=== PATIENT | male | born 1940 | race Hispanic/Latino ===

== ENCOUNTER → 2018-10-13 | Outpatient (CLI) | payer OTHER, MEDICARE | END | disposition home or self-care (01) | LOC: OIH 09:27 | PROVIDERS: ATTEND Family Medicine | DX: M19.071 Primary osteoarthritis, right ankle and foot (principal); M77.31 Calcaneal spur, right foot | CPT/HCPCS: 73610 ==

== ENCOUNTER → 2019-03-08 | Outpatient (CLI) | payer MEDICARE | END | disposition home or self-care (01) | LOC: RAH 08:20 | PROVIDERS: ATTEND Family Medicine | DX: I65.22 Occlusion and stenosis of left carotid artery (principal) | CPT/HCPCS: 93880 ==

== ENCOUNTER 2019-04-23 06:36 | Day surgery (SDC) | payer MEDICARE ==
[2019-04-23 06:30] VITALS: BP 144/90
[2019-04-23] MEDS ORDERED: SODIUM CHLORIDE 0.9% 1000ML 1,000 ML IV ONE (07:08)
[2019-04-23 09:50] VITALS: BP 127/87
[2019-04-23] MEDS ORDERED: IOHEXOL-350 75 ML VIAL IV ONE (10:25)
--- NOTE | 2019-04-23 10:50 | NUR ---
NOTE HYDRATION OF NS AT 150 ML/HR X 4 HOURS COMPLETED AT THIS TIME. IV STOPPED.
--- NOTE | 2019-04-23 11:25 | NUR ---
DISCHARGE PT DISCHARGED VIA WHEELCHAIR WITH DAUGHTER. PT STABLE. NO SIGNS/SYMPTOMS OF ALLERGIC REACTIONS SUCH FEVERS, CHILLS, ITCHING, RASHES, HIVES, SHORTNESS OF BREATH ,WHEEZING, CHEST PAIN, IV SITE NO SWELLING, NO REDNESS NO BLEEDING. PT TOLERATED ORAL FLUIDS WELL. DISCHARGE INSTRUCTIONS GIVEN TO PT AND DAUGHTER, BOTH VERBALIZED UNDERSTANDING. Addendum: 04/23/19 at 1304 by HUNG FONTAINE RN RN ERROR IN TIME: DISCHARGE NOTE TIME IS 1225.
[2019-04-23 11:50] VITALS: BP 138/94
[2019-04-23 12:15] VITALS: BP 147/90
== END 2019-04-23 12:25 | disposition home or self-care (01) ==
LOC: RAH 06:36 → DAH 06:36
PROVIDERS: ATTEND Internal Medicine Cardiovascular Disease
DX: I65.22 Occlusion and stenosis of left carotid artery (principal); I10 Essential (primary) hypertension; E78.00 Pure hypercholesterolemia, unspecified
CPT/HCPCS: 70498; A4606; J7030; Q9967; 96360; 96361

== ENCOUNTER → 2019-04-30 | Outpatient (CLI) | payer MEDICARE ==
[~2019-04-30] VITALS: Ht 167.6 cm; Wt 84.8 kg
[~2019-04-30] MED LIST: REGADENOSON 0.4 MG/5 ML PF SYG IVP SCH
== END | disposition home or self-care (01) ==
LOC: SHCH 08:21
PROVIDERS: ATTEND Internal Medicine Cardiovascular Disease
DX: R53.83 Other fatigue (principal); I11.9 Hypertensive heart disease without heart failure; I65.29 Occlusion and stenosis of unspecified carotid artery
CPT/HCPCS: 78452; 93017; 96374; A9500 ×2; J2785

== ENCOUNTER → 2019-05-03 | Outpatient (CLI) | payer MEDICARE | END | disposition home or self-care (01) | LOC: SHCH 08:14 | PROVIDERS: ATTEND Internal Medicine Cardiovascular Disease | DX: I11.9 Hypertensive heart disease without heart failure (principal); I35.1 Nonrheumatic aortic (valve) insufficiency | CPT/HCPCS: 93306 ==

== ENCOUNTER → 2019-06-08 | Outpatient (CLI) | payer MEDICARE | END | disposition home or self-care (01) | LOC: RAH 14:09 | PROVIDERS: ATTEND Family Medicine | DX: R60.0 Localized edema (principal) | CPT/HCPCS: 93931; 93971 ==

== ENCOUNTER → 2019-08-06 | Outpatient (CLI) | payer MEDICARE | END | disposition home or self-care (01) | LOC: OIH 09:52 | PROVIDERS: ATTEND Internal Medicine | DX: M06.4 Inflammatory polyarthropathy (principal); M19.042 Primary osteoarthritis, left hand; M19.041 Primary osteoarthritis, right hand; I70.203 Unspecified atherosclerosis of native arteries of extremities, bilateral legs; M19.072 Primary osteoarthritis, left ankle and foot; M77.32 Calcaneal spur, left foot; M77.31 Calcaneal spur, right foot; M19.071 Primary osteoarthritis, right ankle and foot | CPT/HCPCS: 73120; 73620 ==

== ENCOUNTER → 2020-02-06 | Outpatient (CLI) | payer MEDICARE | END | disposition home or self-care (01) | LOC: SHCH 11:50 | PROVIDERS: ATTEND Internal Medicine Cardiovascular Disease | DX: I65.21 Occlusion and stenosis of right carotid artery (principal) | CPT/HCPCS: 93880 ==

== ENCOUNTER → 2020-07-09 | Outpatient (CLI) | payer MEDICARE | END | disposition home or self-care (01) | LOC: OIH 10:00 | PROVIDERS: ATTEND Family Medicine | DX: Z01.818 Encounter for other preprocedural examination (principal); I13.0 Hypertensive heart and chronic kidney disease with heart failure and stage 1 through stage 4 chronic kidney disease, or unspecified chronic kidney disease | CPT/HCPCS: 71046 ==

== ENCOUNTER → 2020-07-31 | Outpatient (CLI) | payer MEDICARE | END | disposition home or self-care (01) | LOC: RAH 07:41 | PROVIDERS: ATTEND Orthopaedic Surgery | DX: M75.122 Complete rotator cuff tear or rupture of left shoulder, not specified as traumatic (principal) | CPT/HCPCS: 73221 ==

== ENCOUNTER → 2020-12-26 | Outpatient (CLI) | payer OTHER, MEDICARE | END | disposition home or self-care (01) | LOC: RAH 09:01 | PROVIDERS: ATTEND Internal Medicine | DX: M54.5 Low back pain (principal) | CPT/HCPCS: 76770 ==

== ENCOUNTER → 2021-03-11 | Outpatient (CLI) | payer OTHER, MEDICARE | END | disposition home or self-care (01) | LOC: RAH 09:36 | PROVIDERS: ATTEND Internal Medicine | DX: E11.51 Type 2 diabetes mellitus with diabetic peripheral angiopathy without gangrene (principal) | CPT/HCPCS: 93925 ==

== ENCOUNTER → 2021-03-24 | Outpatient (CLI) | payer OTHER, MEDICARE | END | disposition home or self-care (01) | LOC: SHCH 09:44 | PROVIDERS: ATTEND Internal Medicine Cardiovascular Disease | DX: I82.B12 Acute embolism and thrombosis of left subclavian vein (principal); I80.203 Phlebitis and thrombophlebitis of unspecified deep vessels of lower extremities, bilateral; I70.92 Chronic total occlusion of artery of the extremities; M79.632 Pain in left forearm; R42 Dizziness and giddiness | CPT/HCPCS: 93970 ==

== ENCOUNTER → 2021-07-09 | Outpatient (CLI) | payer OTHER, MEDICARE | END | disposition home or self-care (01) | LOC: SHCH 09:09 | PROVIDERS: ATTEND Internal Medicine Cardiovascular Disease | DX: I65.23 Occlusion and stenosis of bilateral carotid arteries (principal); I10 Essential (primary) hypertension; E78.5 Hyperlipidemia, unspecified | CPT/HCPCS: 93880 ==

== ENCOUNTER → 2021-11-30 | Outpatient (CLI) | payer OTHER, MEDICARE | END | disposition home or self-care (01) | LOC: SHCH 10:56 | PROVIDERS: ATTEND Internal Medicine Cardiovascular Disease | DX: R60.9 Edema, unspecified (principal) | CPT/HCPCS: 93971 ==

== ENCOUNTER → 2022-11-29 | Outpatient (CLI) | payer OTHER, MEDICARE | END | disposition home or self-care (01) | LOC: SHCH 10:37 | PROVIDERS: ATTEND Internal Medicine Cardiovascular Disease | DX: I35.0 Nonrheumatic aortic (valve) stenosis (principal); R94.31 Abnormal electrocardiogram [ECG] [EKG] | CPT/HCPCS: 93306 ==

== ENCOUNTER → 2022-12-06 | Outpatient (CLI) | payer OTHER, MEDICARE | END | disposition home or self-care (01) | LOC: SHCH 08:59 | PROVIDERS: ATTEND Internal Medicine Cardiovascular Disease | DX: R94.31 Abnormal electrocardiogram [ECG] [EKG] (principal); R01.1 Cardiac murmur, unspecified | CPT/HCPCS: 78452; 96374; 93017; J2785; A9500 ×2 ==

== ENCOUNTER → 2023-03-16 | Outpatient (CLI) | payer OTHER, MEDICARE | END | disposition home or self-care (01) | LOC: RAH 10:09 | PROVIDERS: ATTEND Internal Medicine | DX: N27.1 Small kidney, bilateral (principal); N18.4 Chronic kidney disease, stage 4 (severe) | CPT/HCPCS: 76770 ==

== ENCOUNTER → 2023-03-30 | Outpatient (CLI) | payer OTHER, MEDICARE | END | disposition home or self-care (01) | LOC: RAH 10:07 | PROVIDERS: ATTEND Internal Medicine Cardiovascular Disease | DX: I12.9 Hypertensive chronic kidney disease with stage 1 through stage 4 chronic kidney disease, or unspecified chronic kidney disease (principal); N18.4 Chronic kidney disease, stage 4 (severe) | CPT/HCPCS: 76770; 93975 ==

== ENCOUNTER 2023-05-18 14:05 | Emergency (ER) | payer OTHER, MEDICARE ==
[~2023-05-18] VITALS: Ht 167.6 cm; Wt 86.2 kg
[2023-05-18 18:16] LABS: BASOPHILS # (AUTO) 0.05 K/uL (0.00-0.20); BASOPHILS % (AUTO) 0.5 % (0.0-5.0); EOSINOPHILS # (AUTO) 0.52 K/uL (0.00-0.70); EOSINOPHILS % (AUTO) 5.1 % (0.0-8.0); HEMATOCRIT 36.6 % (42-54); IMMATURE GRANULOCYTE ABSOLUTE 0.34 K/uL (0-1); LYMPHOCYTES # (AUTO) 1.7 K/uL (1.0-4.8); LYMPHOCYTES % (AUTO) 16.8 % (21.0-51.0); MEAN CORPUSCULAR HEMOGLOBIN 29.7 pg (27.0-33.0); MEAN CORPUSCULAR HGB CONC 33.6 g/dL (32.0-36.0); MEAN CORPUSCULAR VOLUME 88.4 fL (79-99); MONOCYTES # (AUTO) 1.2 K/uL (0.1-1.0); MONOCYTES % (AUTO) 11.9 % (3.0-13.0); NEUTROPHILS # (AUTO) 6.4 K/uL (1.8-7.7); NEUTROPHILS % (AUTO) 62.4 % (40.0-77.0); PLATELET COUNT (AUTO) 290 K/uL (130-400); RED BLOOD CELL COUNT(AUTO) 4.14 MIL/uL (4.50-6.20); RED CELL DISTRIBUTION WIDTH 13.2 % (11.0-15.5); WHITE BLOOD COUNT (AUTO) 10.2 K/uL (4.8-10.8)
[2023-05-18 18:20] LABS: ADD UA MICROSCOPIC YES; APPEARANCE,URINE CLEAR (CLEAR); BILIRUBIN,URINE NEGATIVE (NEGATIVE); COLOR,URINE LIGHT-YELLOW (YELLOW); GLUCOSE, URINE (UA) NEGATIVE (NEGATIVE); KETONES,URINE NEGATIVE (NEGATIVE); LEUKOCYTE ESTERASE ,URINE NEGATIVE Leu/uL (NEGATIVE); NITRATE,URINE NEGATIVE (NEGATIVE); OCCULT BLOOD,URINE NEGATIVE (NEGATIVE); PH,URINE 5.5 (5.0-8.0); PROTEIN,URINE 30 mg/dL (NEGATIVE); UROBILINOGEN,URINE 0.2 mg/dL (0.2-1.0)
[2023-05-18 18:21] LABS: MUCUS,URINE RARE LPF (None Seen); WBC,URINE 0-1 /HPF (0-1)
[2023-05-18 18:25] LABS: CREATININE 1.8 mg/dL (0.5-1.5); POTASSIUM 4.9 mmol/L (3.5-5.1)
[2023-05-18 18:29] LABS: ALBUMIN 3.2 g/dL (3.5-5.0); BILIRUBIN,TOTAL 0.5 mg/dL (0.2-1.0); TOTAL PROTEIN, SERUM 7.5 g/dL (6.0-8.3)
[2023-05-18] MEDS ORDERED: MORPHINE 2 MG SYG IM ONE (20:00)
[2023-05-18] MEDS ORDERED: 0.9%NACL 1000ML 1,000 ML IV ONE (20:00)
[2023-05-18] MEDS ORDERED: DICY20TA2 PO (20:54)
[2023-05-18] MEDS ORDERED: IBUP-1493 PO (20:54)
[2023-05-18 21:09] VITALS: BP 105/74; PULSE 60; RESP 17; O2SAT 98
== END 2023-05-18 21:10 | disposition home or self-care (01) ==
LOC: EDH 14:05
DX: K52.9 Noninfective gastroenteritis and colitis, unspecified (principal); K40.90 Unilateral inguinal hernia, without obstruction or gangrene, not specified as recurrent; M19.90 Unspecified osteoarthritis, unspecified site; E78.00 Pure hypercholesterolemia, unspecified; I10 Essential (primary) hypertension
CPT/HCPCS: 99285; 74176; 96360; 76705; 80053; 83690; 85025; 81001; 36415; 96372; J2270; J7030

== ENCOUNTER → 2023-05-18 | Outpatient (CLI) | payer OTHER, MEDICARE ==
[~2023-05-18] MED LIST changes: +DICY20TA2 PO; +IBUP-1493 PO; -REGADENOSON 0.4 MG/5 ML PF SYG IVP SCH
== END | disposition home or self-care (01) ==
LOC: RAH 13:10
PROVIDERS: ATTEND Internal Medicine
DX: R10.31 Right lower quadrant pain (principal)
CPT/HCPCS: 76705

== ENCOUNTER 2023-07-05 06:10 | Day surgery (SDC) | payer OTHER, MEDICARE ==
[2023-06-30 12:28] LABS: BASOPHILS # (AUTO) 0.03 K/uL (0.00-0.20); BASOPHILS % (AUTO) 0.4 % (0.0-5.0); EOSINOPHILS # (AUTO) 0.54 K/uL (0.00-0.70); EOSINOPHILS % (AUTO) 6.9 % (0.0-8.0); HEMATOCRIT 36.5 % (42-54); IMMATURE GRANULOCYTE ABSOLUTE 0.04 K/uL (0-1); LYMPHOCYTES # (AUTO) 1.4 K/uL (1.0-4.8); LYMPHOCYTES % (AUTO) 17.7 % (21.0-51.0); MEAN CORPUSCULAR HEMOGLOBIN 29.5 pg (27.0-33.0); MEAN CORPUSCULAR HGB CONC 33.2 g/dL (32.0-36.0); MONOCYTES # (AUTO) 0.6 K/uL (0.1-1.0); MONOCYTES % (AUTO) 7.9 % (3.0-13.0); NEUTROPHILS # (AUTO) 5.3 K/uL (1.8-7.7); NEUTROPHILS % (AUTO) 66.6 % (40.0-77.0); PLATELET COUNT (AUTO) 198 K/uL (130-400); RED CELL DISTRIBUTION WIDTH 13.2 % (11.0-15.5); WHITE BLOOD COUNT (AUTO) 7.9 K/uL (4.8-10.8)
[2023-06-30 12:34] VITALS: BP 144/68; PULSE 52; RESP 19
[2023-06-30 12:38] LABS: INR 0.97 (0.85-1.15); PROTHROMBIN TIME 11.3 SEC (9.6-11.6)
[2023-06-30 12:39] LABS: CREATININE 2.2 mg/dL (0.5-1.5); PARTIAL THROMBOPLASTIN TIME 27.6 SEC (26.3-35.5); POTASSIUM 5.1 mmol/L (3.5-5.1)
[~2023-07-05] VITALS: Ht 167.6 cm; Wt 84.9 kg
[2023-07-05] VITALS (16 sets, daily range): BP systolic 100–158; BP diastolic 55–73; PULSE 53–62; RESP 9–23
[~2023-07-05 06:10] MED LIST changes: +ACET-3573 PO; +AEC81 PO; +ATOR40TA71 PO; +BUSP5TAB3 PO; +CHOL100040 PO; +CITA-107 PO; +CLOP75TA32 PO; +CYAN500T9 PO; -DICY20TA2 PO; +DOCU100C33 PO; +FISH1CAP65 PO; +HYDR-4154 PO; -IBUP-1493 PO; +LISI40TA9 PO; +METO-409 PO; +NIFE90TA72 PO
[2023-07-05] MEDS ORDERED: 0.9%NACL 1000ML 1,000 ML IV ONE (06:44)
[2023-07-05] MEDS ORDERED: CEFAZOLIN SODIUM 2 GM VIAL ONE (06:44)
[2023-07-05] MEDS ORDERED: BUPIVACAINE/PF 0.25% 30ML VIAL IJ ONE (07:05)
[2023-07-05] MEDS ORDERED: ROCURONIUM 10MG/1ML SYR 10 MG/ML ML ONE (07:13)
[2023-07-05] MEDS ORDERED: PROPOFOL 10 MG/ML 20ML VIAL IV ONE (07:13)
[2023-07-05] MEDS ORDERED: LIDOCAINE PF 100MG/5ML (2%) SYRINGE 5ML ONE (07:13)
[2023-07-05] MEDS ORDERED: MIDAZOLAM HCL 1 MG/ML 2ML VIAL ONE (07:13)
[2023-07-05] MEDS ORDERED: ONDANSETRON 4MG INJ ONE (07:14)
[2023-07-05] MEDS ORDERED: DEXAMETHASONE SOD PHOSPHATE 4 MG/ML 1ML VIAL ONE (07:14)
[2023-07-05] MEDS ORDERED: FENTANYL CITRATE PF 50 MCG/1 ML 2ML VIAL ONE (07:14)
[2023-07-05] MEDS ORDERED: ROPIVACAINE 0.5% 5MG/ML 30ML IJ ONE (07:21)
[2023-07-05] MEDS ORDERED: GLYCOPYRROLATE 1 MG/5 ML SYRINGE ONE (07:44)
[2023-07-05] MEDS ORDERED: PHENYLEPHRINE HCL 10 MG/ML 1ML VIAL IV ONE (07:44)
[2023-07-05] MEDS ORDERED: NEOSTIGMINE 5MG/5ML SYR IV ONE (07:45)
[2023-07-05] MEDS ORDERED: CEFAZOLIN SODIUM 2 GM VIAL IVPB ONE (07:45)
[2023-07-05] MEDS ORDERED: EPHEDRINE SULFATE 50 MG/ML AMPULE ONE (07:48)
[2023-07-05] MEDS ORDERED: TRAM50TA4 PO (08:32)
[2023-07-05] MEDS ORDERED: GABA-529 PO (08:32)
[2023-07-05] MEDS ORDERED: DOCU-116 PO (08:32)
== END 2023-07-05 10:25 | disposition home or self-care (01) ==
LOC: DAH 06:10
PROVIDERS: ATTEND Surgery
DX: K40.90 Unilateral inguinal hernia, without obstruction or gangrene, not specified as recurrent (principal); N43.2 Other hydrocele; E11.22 Type 2 diabetes mellitus with diabetic chronic kidney disease; I12.9 Hypertensive chronic kidney disease with stage 1 through stage 4 chronic kidney disease, or unspecified chronic kidney disease; N18.4 Chronic kidney disease, stage 4 (severe); E11.42 Type 2 diabetes mellitus with diabetic polyneuropathy; E11.628 Type 2 diabetes mellitus with other skin complications; M15.9 Polyosteoarthritis, unspecified; E78.2 Mixed hyperlipidemia; M10.9 Gout, unspecified; N40.0 Benign prostatic hyperplasia without lower urinary tract symptoms; J44.9 Chronic obstructive pulmonary disease, unspecified; Z85.46 Personal history of malignant neoplasm of prostate; Z86.718 Personal history of other venous thrombosis and embolism; Z79.899 Other long term (current) drug therapy; Z79.01 Long term (current) use of anticoagulants
CPT/HCPCS: 80048; 85025; 85610; 85730; 36415; 49505; 55040; 82948 ×2; 64486; A6260; J1100; A4663; J7030 ×2; A4452; A4344; J3010; J3490 ×3; J2710; J2001; J2250; J2704; J2405; J2795; J2371; J0690 ×2; A4215; A4223; A4222; A4221; A4600

== ENCOUNTER → 2023-07-27 | Outpatient (CLI) | payer OTHER, MEDICARE ==
[~2023-07-27] MED LIST changes: +DOCU-116 PO; +GABA-529 PO; +TRAM50TA4 PO
== END | disposition home or self-care (01) ==
LOC: RAH 09:57
PROVIDERS: ATTEND Internal Medicine
DX: I70.203 Unspecified atherosclerosis of native arteries of extremities, bilateral legs (principal)
CPT/HCPCS: 93925

== ENCOUNTER → 2024-06-29 | Outpatient (CLI) | payer OTHER, MEDICARE ==
[~2024-06-29] MED LIST changes: -HYDR-4154 PO; +HYDR50TA37 PO
[2024-06-29] MEDS: REGADENOSON 0.4 MG/5 ML PF SYG IVP ONE (11:25)
== END | disposition home or self-care (01) ==
LOC: SHCH 08:20
PROVIDERS: ATTEND Internal Medicine Cardiovascular Disease
DX: I25.119 Atherosclerotic heart disease of native coronary artery with unspecified angina pectoris (principal); I10 Essential (primary) hypertension; R06.02 Shortness of breath; R53.83 Other fatigue; R00.1 Bradycardia, unspecified; Z79.899 Other long term (current) drug therapy
CPT/HCPCS: 78452; 93017; J2785; A9500 ×2

== ENCOUNTER → 2025-01-25 | Outpatient (CLI) | payer OTHER, MEDICARE ==
[~2025-01-25] MED LIST changes: +LISI40TA15 PO; -LISI40TA9 PO
--- NOTE | 2025-01-25 11:54 | HMCIMG ---
US VENOUS DOPPLER UNILATERAL HISTORY: Upper extremity swelling COMPARISON: None TECHNIQUE: Left upper extremity venous Doppler ultrasound study was performed. FINDINGS: The left subclavian, axillary, and brachial veins are visualized. Normal flow with augmentation and compressibilities are demonstrated. Left cephalic and basilic veins are patent IMPRESSION: 1. No evidence of deep venous thrombosis is seen.
== END | disposition home or self-care (01) ==
LOC: RAH 10:47
PROVIDERS: ATTEND Internal Medicine
DX: R22.32 Localized swelling, mass and lump, left upper limb (principal); M79.89 Other specified soft tissue disorders
CPT/HCPCS: 93971

== ENCOUNTER → 2025-02-07 | Outpatient (CLI) | payer OTHER, MEDICARE ==
[~2025-02-07] MED LIST changes: -LISI40TA15 PO; +LISI40TA9 PO
--- NOTE | 2025-02-07 20:42 | HMCSR ---
APPROVED REPORT EXAM: Two-dimensional and M-mode echocardiogram with Doppler and color Doppler. INDICATION ICD: R60.0 Localized edema 2D Dimensions RVDd3.8 cmLVEF(%)65.1 (>50%)LVED Vol(simp.)110.0 mL IVSd1.0 (0.7-1.1cm)FS(%)36 %LVES Vol(simp.)43.0 mL LVDd4.9 (3.8-5.6cm)LA (2D)4.9 (1.6-4.0cm)LVEF(%, simp.)61 % PWd1.4 (0.7-1.1cm)Ao Root(2D)3.4 (2.0-3.7cm)LA ESV INDEX (BP)38.59 mL/m2 IVSs1.4 cmLVOT diam2.3 (1.8-2.4cm) LVDs3.1 (2.5-4.0cm)IVC diam1.0 cm PWs1.6 cm M-Mode Dimensions EPSS0.6 cm LA (MM)6.1 (1.6-4.0cm) Ao Root(MM)3.3 (2.0-3.7cm) Aortic Valve AoV Vmax2.6 m/Jonny Peak GR43.2 mmHgLVOT Vmax1.2 m/s AoV VTI0.6 mAo Mean GR20.9 mmHgLVOT VTI0.30 m HILLARY (VMAX)1.50 cm2Al P1/2T611 msAVA (VTI) 2.1 cm2 Mitral Valve MV E Idxh011.4 cm/sDECEL Vlji679 ms MV A Zulo436.5 cm/sP 1/2 T46 ms E/A ratio1.0MVA (PHT)4.8 cm2 TDI E/E' Raskax42.2E/E' Nzwkdma39.0 Medial E' Peak V4.06 cm/sLateral E' Peak V6.04 cm/s Pulmonary Valve PV Vmax1.1 m/sPV VTI0.26 mPV Mean GR2.5 mmHg PV Peak GR4.8 mmHg Tricuspid Valve TR Vmax2.2 m/sRAP (EST) 3 bkJlEDOQ76.0 mmHg TR Peak GR20.0 mmHg Left Ventricle The left ventricle is normal size. There is normal LV segmental wall motion. There is normal left mando tricular wall thickness. LVEF is 60-65%. Indeterminate diastolic dysfunction. Right Ventricle The right ventricle is normal size. The right ventricular systolic function is normal. Atria The left atrium is mildly dilated. The right atrium is moderately dilated. Aortic Valve Aortic valve is trileaflet. Left non coronary cusp leaflet is moderately thickened with moderately li mited excursion. Mild aortic regurgitation is present. There is moderate aortic valvular stenosis. Pk G 43mmHg, MG 21mmHg. AoV 1.5cm. AoV planimertry 1.6cm. Mitral Valve Mitral valve leaflets open well. Mild posterior annular calcification noted. There is trace of lilo l valve regurgitation noted. There is no mitral valve stenosis. Tricuspid Valve The tricuspid valve is normal in structure. There is trace of tricuspid valve regurgitation noted. Ca nnot exclude vegetation on anterior tricuspid valve leaflet. Pulmonic Valve The pulmonary valve is normal in structure. There is no pulmonic valvular regurgitation. Great Vessels The aortic root is normal in size. The IVC is normal in size and collapses >50% with inspiration. Pericardium There is no pericardial effusion. Other Information Quality : Adequate Conclusion LVEF is 60-65%. Indeterminate diastolic dysfunction. The left atrium is mildly dilated. Aortic valve is trileaflet. Left non coronary cusp leaflet is moderately thickened with moderately li mited excursion. Mild aortic regurgitation is present. There is moderate aortic valvular stenosis. Pk G 43mmHg, MG 21mmHg. AoV 1.5cm. AoV planimertry 1.6cm . There is trace of mitral valve regurgitation noted.
== END | disposition home or self-care (01) ==
LOC: RAH 12:58
PROVIDERS: ATTEND Internal Medicine
DX: I08.3 Combined rheumatic disorders of mitral, aortic and tricuspid valves (principal); R60.0 Localized edema
CPT/HCPCS: 93306